=== PATIENT | female | born 1975 | race African-American/Black ===

== ENCOUNTER 2022-10-12 15:07 | Emergency (ER) | payer MEDICAID ==
[~2022-10-12] VITALS: Ht 172.7 cm; Wt 95.0 kg
[2022-10-12] MEDS ORDERED: IBUPROFEN600 MG PO (17:15)
[2022-10-12] MEDS ORDERED: VOLTAREN1%GEL TOP (17:15)
[2022-10-12] MEDS ORDERED: TRAMADOL HYDROC50 M1 PO (17:15)
[2022-10-12 17:24] VITALS: BP 144/79
== END 2022-10-12 17:36 | disposition home or self-care (01) ==
LOC: ED 15:07
DX: M25.561 Pain in right knee (principal); F17.290 Nicotine dependence, other tobacco product, uncomplicated

== ENCOUNTER 2022-12-01 01:32 | Emergency (ER) | payer MEDICAID ==
[~2022-12-01] VITALS: Ht 172.7 cm; Wt 80.0 kg
[~2022-12-01 01:32] MED LIST: IBUPROFEN600 MG PO; TRAMADOL HYDROC50 M1 PO; VOLTAREN1%GEL TOP
[2022-12-01] MEDS ORDERED: GENTAMICIN0.3 % OD (02:07)
[2022-12-01 02:22] VITALS: BP 150/89
== END 2022-12-01 02:22 | disposition home or self-care (01) ==
LOC: ED 01:32
DX: H10.9 Unspecified conjunctivitis (principal)

== ENCOUNTER 2023-02-09 18:47 | Emergency (ER) | payer OTHER ==
[~2023-02-09] VITALS: Ht 172.7 cm; Wt 88.0 kg
[~2023-02-09 18:47] MED LIST changes: +AMOX/K CLAV875 M1 PO; +GENTAMICIN0.3 % OD; +MOTRIN800 MG PO
[2023-02-09] MEDS ORDERED: VOLTAREN - GENE75 MG PO (22:20)
[2023-02-09 22:28] VITALS: BP 145/74
== END 2023-02-09 22:30 | disposition home or self-care (01) ==
LOC: ED 18:47
DX: S39.012A Strain of muscle, fascia and tendon of lower back, initial encounter (principal); M25.551 Pain in right hip; X58.XXXA Exposure to other specified factors, initial encounter

== ENCOUNTER 2023-02-26 14:06 | Emergency (ER) | payer OTHER ==
[~2023-02-26] VITALS: Ht 172.7 cm; Wt 104.0 kg
[~2023-02-26 14:06] MED LIST changes: +VOLTAREN - GENE75 MG PO
[2023-02-26 14:14] VITALS: BP 125/61
[2023-02-26 14:30] VITALS: BP 125/74
[2023-02-26 14:41] LABS: BASO% 0.6 % (0-3); EOS% 3.7 % (0-8); HEMATOCRIT 30.4 % (37.0-47.0); HEMOGLOBIN 8.9 g/dl (12.0-16.0); IMMATURE GRANULOCYTES 0.1 % (0.0-5.0); LYMPH% 22.8 % (15-41); MEAN CELL VOLUME 57.9 fL CALC (80.0-100.0); MEAN CORPUSCULAR HGB CONC 29.3 g/dL CAL (32.0-36.0); MONO% 13.8 % (2-13); NEUT# 3.93 thou/uL (2.00-7.15); RED BLOOD COUNT 5.25 mill/uL (4.20-5.60); RED CELL DISTRI WIDTH 21.1 % (11.5-15.5)
[2023-02-26 15:01] VITALS: BP 128/71
[2023-02-26] MEDS ORDERED: BENZONATATE200 MG PO (15:22)
[2023-02-26 15:34] VITALS: BP 128/71
== END 2023-02-26 15:33 | disposition home or self-care (01) ==
LOC: ED 14:06
PROVIDERS: Family Medicine
DX: B34.9 Viral infection, unspecified (principal); Z20.822 Contact with and (suspected) exposure to COVID-19

== ENCOUNTER 2023-06-11 19:33 | Emergency (ER) | payer OTHER ==
[2023-06-11] VITALS (7 sets, daily range): BP systolic 129–134; BP diastolic 59–76
[~2023-06-11] VITALS: Ht 172.7 cm; Wt 104.0 kg
[~2023-06-11 19:33] MED LIST changes: +BENZONATATE200 MG PO
[2023-06-11 20:41] LABS: BASO% 0.4 % (0-3); EOS% 1.2 % (0-8); HEMOGLOBIN 9.1 g/dl (12.0-16.0); IMMATURE GRANULOCYTES 0.1 % (0.0-5.0); LYMPH% 16.5 % (15-41); MEAN CELL VOLUME 57.9 fL CALC (80.0-100.0); MEAN CORPUSCULAR HGB CONC 29.4 g/dL CAL (32.0-36.0); MONO% 7.7 % (2-13); NEUT# 7.99 thou/uL (2.00-7.15); NEUT% 74.1 % (42-76); RED BLOOD COUNT 5.35 mill/uL (4.20-5.60)
[2023-06-11 20:57] LABS: ALBUMIN 4.4 g/dL (3.2-5.0); ALKALINE PHOSPHATASE 82 u/l (38-126); AMYLASE 127 u/l (30-110); ANION GAP 14 (6-22 (CALC)); BILIRUBIN, TOTAL 0.7 mg/dL (0.02-1.3); BUN 12 mg/dL (7-17); BUN/CREATININE RATIO 25 (12-20 (CALC)); CARBON DIOXIDE 22 mmol/l (22-30); CHLORIDE 104 mmol/l (95-108); CREATININE 0.5 mg/dL (0.5-1.0); GFR FOR AFR.AMER. > 60 ML/MIN (>=60 (CALC)); GFR OTHER RACES > 60 ML/MIN (>=60 (CALC)); LIPASE 165 u/l (23-300); POTASSIUM 3.6 mmol/l (3.5-5.1); SGOT/AST 26 u/l (14-36); SODIUM 136 mmol/l (137-146); TOTAL PROTEIN 7.8 g/dL (6.3-8.2)
[2023-06-11 21:59] LABS: URINE BILIRUBIN - DIPSTICK Negative (NEGATIVE); URINE BLOOD DIPSTICK Small (NEGATIVE); URINE GLUCOSE - DIPSTICK Negative (NEGATIVE); URINE KETONE Negative (NEGATIVE); URINE LEUK ESTERASE Negative (NEGATIVE); URINE NITRITE - DIPSTICK Negative (Negative); URINE PROTEIN - DIPSTICK Negative (NEG-TRACE); URINE SPECIFIC GRAVITY 1.015; URINE UROBILINOGEN - DIPSTICK 0.2 E.U./dL (0.2)
[2023-06-11 22:02] LABS: URINE COLOR Yellow; URINE SQUAMOUS EPITHELIAL CELL FEW EPI/hpf (0-FEW); URINE WBC 0-2 WBC/hpf (0-5)
[2023-06-11] MEDS ORDERED: BACTRIM DS1 TAB PO (22:38)
[2023-06-11] MEDS ORDERED: PYRIDIUM200 MG PO (22:38)
== END 2023-06-11 23:22 | disposition home or self-care (01) ==
LOC: ED 19:33
PROVIDERS: Family Medicine
DX: N30.01 Acute cystitis with hematuria (principal); Z72.0 Tobacco use
CPT/HCPCS: S0164

== ENCOUNTER 2024-07-14 06:49 | Day surgery (SDC) | payer OTHER ==
[~2024-07-14] VITALS: Ht 172.7 cm; Wt 89.8 kg
[~2024-07-14 06:49] MED LIST changes: +BACTRIM DS1 TAB PO; +PYRIDIUM200 MG PO; +UNKNOWN BP MED
[2024-07-14] MEDS ORDERED: FAMOTIDINE 10MG/ML 2ML SDV IV ONE (07:01)
[2024-07-14] MEDS ORDERED: LACTATED RINGER'S 1,000 ML IV ONE (07:01)
[2024-07-14 09:19] VITALS: BP 140/74
[2024-07-14] MEDS ORDERED: GLYCOPYRROLATE 0.2 MG/ML IV ONE (11:17)
[2024-07-14] MEDS ORDERED: LIDOCAINE HCL 2% 2ML SDV IV ONE (11:17)
[2024-07-14] MEDS ORDERED: PROPOFOL 200 MG/20 ML VIAL IV ONE (11:17)
== END 2024-07-14 09:26 | disposition home or self-care (01) ==
LOC: ORM 06:49
PROVIDERS: ATTEND Surgery
DX: D3A.8 Other benign neuroendocrine tumors (principal); K57.30 Diverticulosis of large intestine without perforation or abscess without bleeding; K64.8 Other hemorrhoids; F17.200 Nicotine dependence, unspecified, uncomplicated; Z12.11 Encounter for screening for malignant neoplasm of colon; Z80.0 Family history of malignant neoplasm of digestive organs
CPT/HCPCS: J1596

== ENCOUNTER 2024-07-23 08:07 | Emergency (ER) | payer OTHER ==
[~2024-07-23] VITALS: Ht 172.7 cm; Wt 95.0 kg
[2024-07-23 08:18] VITALS: BP 151/86
[2024-07-23] MEDS ORDERED: LIDOcaine HCl 1% (Local Anesth.) 20 ML VIAL IM STA (08:22)
[2024-07-23] MEDS ORDERED: HYDROCO/APAP1 TA9 PO ×2 (08:24→08:37)
[2024-07-23] MEDS ORDERED: METRONIDAZOLE500 MG PO ×2 (08:24→08:37)
[2024-07-23] MEDS ORDERED: AMOX/K CLAV875 M1 PO ×2 (08:24→08:37)
[2024-07-23] MEDS ORDERED: metroNIDAZOLE 500 MG/TAB PO ONE (08:25)
[2024-07-23] MEDS ORDERED: KETOROLAC TROMETHAMINE 30 MG/ML SDV IM ONE (08:25)
[2024-07-23] MEDS ORDERED: cefTRIAXone SODIUM 1 GM/VIAL SDV IM ONE (08:25)
[2024-07-23] MEDS ORDERED: MOTRIN400 MG/TAB PO ×2 (08:27→08:37)
[2024-07-23 08:30] VITALS: BP 147/86
[2024-07-23 08:35] VITALS: BP 151/86
== END 2024-07-23 08:38 | disposition home or self-care (01) ==
LOC: ED 08:07
DX: K08.89 Other specified disorders of teeth and supporting structures (principal); Z72.0 Tobacco use
CPT/HCPCS: J0696

== ENCOUNTER 2024-07-24 14:41 | Emergency (ER) | payer OTHER ==
[~2024-07-24] VITALS: Ht 172.7 cm; Wt 89.0 kg
[~2024-07-24 14:41] MED LIST changes: +HYDROCO/APAP1 TA9 PO; +METRONIDAZOLE500 MG PO; +MOTRIN400 MG/TAB PO
[2024-07-24 15:45] VITALS: BP 157/78
[2024-07-24 16:01] VITALS: BP 143/69
[2024-07-24] MEDS ORDERED: MORPHINE SULFATE 4 MG/ML VIAL IV ONE (16:10)
[2024-07-24] MEDS ORDERED: KETOROLAC TROMETHAMINE 30 MG/ML SDV IV ONE (16:10)
[2024-07-24] MEDS ORDERED: SODIUM CHLORIDE 0.9% 1,000 ML IV ONE (16:10)
[2024-07-24] MEDS ORDERED: ONDANSETRON HCl 4 MG/2 ML SDV IV ONE (16:10)
[2024-07-24] MEDS ORDERED: AMPICILLIN & SULBACTAM SODIUM 3 GM in SODIUM CHLORIDE 0.9% 100 ML IV ONE (16:15)
[2024-07-24 16:38] LABS: BASO% 0.3 % (0-3); EOS% 0.9 % (0-8); HEMATOCRIT 32.1 % (37.0-47.0); HEMOGLOBIN 9.1 g/dl (12.0-16.0); IMMATURE GRANULOCYTES 0.4 % (0.0-5.0); LYMPH% 14.1 % (15-41); MEAN CELL VOLUME 59.8 fL CALC (80.0-100.0); MEAN CORPUSCULAR HGB 16.9 pG CALC (26.0-32.0); MEAN CORPUSCULAR HGB CONC 28.3 g/dL CAL (32.0-36.0); NEUT# 8.68 thou/uL (2.00-7.15); NEUT% 75.3 % (42-76); RED BLOOD COUNT 5.37 mill/uL (4.20-5.60); RED CELL DISTRI WIDTH 21.4 % (11.5-15.5)
[2024-07-24 16:49] LABS: ALBUMIN 4.6 g/dL (3.2-5.0); BILIRUBIN, TOTAL 0.9 mg/dL (0.02-1.3); CREATININE 0.5 mg/dL (0.5-1.0); POTASSIUM 4.2 mmol/l (3.5-5.1); TOTAL PROTEIN 8.2 g/dL (6.3-8.2)
[2024-07-24 16:57] VITALS: BP 143/69
[2024-07-25] MEDS ORDERED: TRAMADOL HYDROC50 M1 PO (14:24)
[2024-07-25] MEDS ORDERED: ZOFRAN4 MG/TAB PO (14:24)
== END 2024-07-24 17:00 | disposition left against medical advice (07) ==
LOC: ED 14:41
PROVIDERS: Family Medicine
DX: K08.89 Other specified disorders of teeth and supporting structures (principal); Z53.29 Procedure and treatment not carried out because of patient's decision for other reasons; Z72.0 Tobacco use
CPT/HCPCS: J2405

== ENCOUNTER 2024-07-25 12:37 | Emergency (ER) | payer OTHER ==
[~2024-07-25] VITALS: Ht 172.7 cm; Wt 90.7 kg
[2024-07-25 13:20] VITALS: BP 146/76
[2024-07-25 13:30] VITALS: BP 135/70
[2024-07-25] MEDS ORDERED: LIDOcaine HCl 1% (Local Anesth.) 20 ML VIAL IM STA (13:59)
[2024-07-25 14:00] VITALS: BP 147/85
[2024-07-25] MEDS ORDERED: ONDANSETRON 4 MG/TAB ODT PO ONE (14:00)
[2024-07-25] MEDS ORDERED: HYDROmorphone HCL 2 MG/AMP IM ONE (14:00)
[2024-07-25] MEDS ORDERED: cefTRIAXone SODIUM 1 GM/VIAL SDV IM ONE (14:00)
[2024-07-25] MEDS ORDERED: TRAMADOL HYDROC50 M1 PO (14:24)
[2024-07-25] MEDS ORDERED: ZOFRAN4 MG/TAB PO (14:24)
[2024-07-25 14:50] VITALS: BP 147/85
== END 2024-07-25 14:54 | disposition home or self-care (01) ==
LOC: ED 12:37
DX: K04.7 Periapical abscess without sinus (principal); Z72.0 Tobacco use
CPT/HCPCS: J0696; J1171

== ENCOUNTER 2024-08-31 16:31 | Emergency (ER) | payer OTHER ==
[~2024-08-31] VITALS: Ht 172.7 cm; Wt 93.4 kg
[~2024-08-31 16:31] MED LIST changes: +ZOFRAN4 MG/TAB PO
[2024-08-31 16:44] VITALS: BP 136/98
[2024-08-31] MEDS ORDERED: KETOROLAC TROMETHAMINE 30 MG/ML SDV IM ONE (16:50)
[2024-08-31] MEDS ORDERED: HYDROmorphone HCL 2 MG/AMP IM ONE (16:50)
[2024-08-31 17:00] VITALS: BP 132/70
[2024-08-31] MEDS ORDERED: CLINDAMYCIN HY150 MG PO (17:11)
[2024-08-31] MEDS ORDERED: NAPROXEN500 MG PO (17:11)
[2024-08-31 17:18] VITALS: BP 132/70
== END 2024-08-31 17:25 | disposition home or self-care (01) ==
LOC: ED 16:31
DX: K04.7 Periapical abscess without sinus (principal); Z72.0 Tobacco use
CPT/HCPCS: J1171